=== PATIENT | male | born 1990 | race Caucasian/White ===

== ENCOUNTER 2024-05-05 20:31 | Observation (INO) ==
[2024-05-05] MEDS: Multivitamins/Minerals TAB PO SCH (21:18)
[2024-05-05] MEDS: Thiamine 100 MG/ML 2 ml VIAL (200 mg) IV ONE (21:20)
[2024-05-05 21:44] LABS: ABS Basophils 0.1 10^3/uL (0.0-0.1); ABS Eosinophils 0.3 10^3/uL (0.0-0.5); ABS Lymphocytes 3.6 10^3/uL (1.0-4.8); ABS Monocytes 0.4 10^3/uL (0.0-1.1); ABS Neutrophils 3.8 10^3/uL (1.5-7.6); ABS Nucleated RBC 0.02 10^3/ul; Eosinophil % 4.2 %; Hematocrit 39.8 % (38-53); Hemoglobin 13.4 g/dL (13.2-16.3); Lymphocyte % 43.7 %; Mean Corpuscular Hemoglobin 27.5 pg (27-33); Mean Corpuscular Hgb Conc 33.6 g/dL (31-36); Mean Platelet Volume 7.5 fL (7.5-11.2); Nucleated Red Blood Cells % 0.2 %/100WBC (0.0-0.8); Platelet Count 267 10^3/uL (150-450); Red Blood Count 4.85 10^6/uL (4.06-5.63); Red Cell Distribution Width 14.1 % (12-17); White Blood Count 8.3 10^3/uL (3.6-10.2)
[2024-05-05 22:45] LABS: Albumin 4.1 g/dL (3.2-5.2); Albumin/Globulin Ratio 1.5 (1-3); Calcium 8.8 mg/dL (8.6-10.3); Creatinine, Serum 0.92 mg/dL (0.67-1.17); Globulin 2.8 g/dL (2-4); Total Bilirubin 0.3 mg/dL (0.2-1.0); Total Protein 6.9 g/dL (6.4-8.9); eGFR CKD-EPI 112.6 (>60)
[2024-05-05 23:00] LABS: TSH Ultra Thyroid Stim Horm 2.92 mcIU/mL (0.34-5.60)
[2024-05-05 23:11] LABS: Folate 4.45 ng/mL (5.90-24.80)
[2024-05-06 07:16] LABS: Hematocrit 40.8 % (38-53); Hemoglobin 13.7 g/dL (13.2-16.3); Mean Corpuscular Hemoglobin 27.3 pg (27-33); Mean Corpuscular Hgb Conc 33.6 g/dL (31-36); Mean Corpuscular Volume 81.4 fL (80-97); Mean Platelet Volume 7.5 fL (7.5-11.2); Platelet Count 251 10^3/uL (150-450); Red Blood Count 5.01 10^6/uL (4.06-5.63); Red Cell Distribution Width 14.1 % (12-17); White Blood Count 7.2 10^3/uL (3.6-10.2)
[2024-05-06 08:13] LABS: Calcium 9.3 mg/dL (8.6-10.3); Creatinine, Serum 0.93 mg/dL (0.67-1.17); Potassium 4.4 mmol/L (3.5-5.0); eGFR CKD-EPI 111.2 (>60)
[2024-05-07 05:54] LABS: Albumin 4.3 g/dL (3.2-5.2); Albumin/Globulin Ratio 1.5 (1-3); Calcium 9.5 mg/dL (8.6-10.3); Creatinine, Serum 0.91 mg/dL (0.67-1.17); Globulin 2.9 g/dL (2-4); Potassium 4.4 mmol/L (3.5-5.0); Total Bilirubin 0.7 mg/dL (0.2-1.0); Total Protein 7.2 g/dL (6.4-8.9); eGFR CKD-EPI 114.1 (>60)
[2024-05-07 09:58] VITALS: BP 132/85
[2024-05-16 16:29] LABS: Amphetamines Screen Blood None Detected; Cocaine Metabolites Screen Bl None Detected; Fentanyl/Acetyl FentanylScreen None Detected; Methadone Metabolites Scrn Bl None Detected; Methamphetamines/MDMA Screen None Detected; Opiates Screen Blood None Detected; Oxycodone/Oxymorphone Scrn Bl None Detected; Phencyclidine Screen Blood None Detected
[2024-05-17 09:37] LABS: 11-Hydroxy Delta-9 THC 1.9 ng/mL; 7-Amino Clonazepam None Detected; Alpha-Hydroxyalprazolam None Detected; Alprazolam None Detected; Chlordiazepoxide None Detected; Clobazam None Detected; Clonazepam None Detected; Delta-9 Carboxy THC 14 ng/mL; Delta-9 THC 1.9 ng/mL; Desalkylflurazepam None Detected; Diazepam 82 ng/mL; Estazolam None Detected; Flurazepam None Detected; Hydroxyethylflurazepam None Detected; Hydroxytriazolam None Detected; Lorazepam 41 ng/mL; Midazolam None Detected; Temazepam None Detected; Triazolam None Detected
== END 2024-05-07 13:10 | disposition home or self-care (01) ==
LOC: EDHOLD 20:31 → ED 20:31 → MEDTELE 21:02 → SUATTDRO 21:02 → MEDTELE 05-06 01:05
PROVIDERS: ADMIT Internal Medicine; ATTEND Student in an Organized Health Care Education/Training Program